=== PATIENT | male | born 1985 | race Two or more races ===

== ENCOUNTER 2022-10-21 05:55 | Emergency (ER) | payer MEDICAID ==
[~2022-10-21] VITALS: Ht 170.2 cm; Wt 109.1 kg
[2022-10-21] MEDS ORDERED: ACETAMINOPHEN 500 MG TAB PO STA (07:19)
[2022-10-21 07:30] VITALS: BP 144/81
[2022-10-21] MEDS ORDERED: TETANUS-DIPTH-ACEL PERTUSSIS 0.5ML SYR Tdap IM ONE (09:00)
[2022-10-21] MEDS ORDERED: IBUP600T28 PO (09:01)
== END 2022-10-21 09:35 | disposition home or self-care (01) ==
LOC: ER 05:55
DX: S83.91XA Sprain of unspecified site of right knee, initial encounter (principal); F17.210 Nicotine dependence, cigarettes, uncomplicated; X58.XXXA Exposure to other specified factors, initial encounter; Y93.89 Activity, other specified; Y92.89 Other specified places as the place of occurrence of the external cause; Y99.8 Other external cause status
CPT/HCPCS: 73562; 93971

== ENCOUNTER 2024-06-11 23:15 | Emergency (ER) | payer MEDICAID ==
[~2024-06-11] VITALS: Ht 170.2 cm; Wt 124.8 kg
[~2024-06-11 23:15] MED LIST: IBUP1TAB5 PO
[2024-06-12] MEDS: KETOROLAC TROMETH 60MG/2ML VIAL IM ONE (00:24)
--- NOTE | 2024-06-12 00:31 | DVH ---
CLINICAL INDICATION: Fall/twist TECHNIQUE: 3 views of the left foot. Comparison: None FINDINGS/IMPRESSION: Small avulsion fracture is seen adjacent to the distal tibia. Moderate soft tissue swelling around the ankle
--- NOTE | 2024-06-12 00:33 | DVH ---
CLINICAL INDICATION: Fall/twist TECHNIQUE: 3 views of the left ankle. Comparison: None FINDINGS/IMPRESSION: There is no evidence of acute fracture or dislocation. The previously described tiny distal tibial av ulsion fracture is not clearly visualized on this exam. Moderate soft tissue swelling around the ankle.
[2024-06-12 00:38] VITALS: BP 152/95; PULSE 110; RESP 18; O2SAT 98
[2024-06-12] MEDS ORDERED: ACET500T58 PO (00:50)
[2024-06-12] MEDS ORDERED: IBUP-1455 PO (00:50)
--- NOTE | 2024-06-12 00:50 | ED.PDOC ---
Musculoskeletal HPI Comments This patient is a pleasant but morbidly obese 38-year-old male who arrives the ED today for evaluation of left ankle and foot pain concerns for the past few days. Patient was working on a ladder when he slipped and fell off the ladder landing on his ankle. Patient is able to ambulate, but states it is painful and his ankle swollen. Patient denies any head trauma. Vital signs were stable at arrival. Chief Complaint: Extremity Swelling Time Seen by MD: 23:18 Reviewed Notes: Nurses Notes Home Meds Active Scripts Ibuprofen Micronized (Ibuprofen) 600 Mg Tab, 600 MG PO Q8HPRN PRN, #30 TAB 0 Refills Prov:GAURANG [employer] 10/21/22 Information Source: Patient Mode of Arrival: Ambulatory Location: Left Extremity Location: Ankle, Foot Timing: Days Prehospital treatment: Pain Meds Severity: Moderate Able to Move Extremity: Yes Bear Weight: Limited Pain: Moderate Mechanism: Blunt Trauma, Compression Circumstances: Fall Onset of Symptoms: After Trauma Symptoms: Swelling, Pain DVT Risk Factors: NONE Past Medical History PAST MEDICAL HISTORY: Denies Surgical History: Denies all surgeries Family History Family History: Reviewed,noncontributory to illness Social History Smoker: Cigarettes Alcohol: Occasionally Drugs: Marijuana Lives In: Home Constitutional: denies: chills, diaphoresis, fatigue, fever, malaise, sweats, weakness, others EENTM: denies: blurred vision, double vision, ear bleeding, ear discharge, ear drainage, ear pain, ear ringing, eye pain, eye redness, hearing loss, mouth pain, mouth swelling, nasal discharge, nose bleeding, nose congestion, nose pain, photophobia, tearing, throat pain, throat swelling, voice changes, others Respiratory: denies: cough, hemoptysis, orthopnea, SOB at rest, shortness of breath, SOB with excertion, stridor, wheezing, others Cardiovascular: denies: chest pain, dizzy spells, diaphoresis, Dyspnea on exertion, edema, irregular heart beat, left arm pain, lightheadedness, palpitations, PND, syncope, others Gastrointestinal: denies: abdomen distended, abdominal pain, blood streaked bowels, constipated, diarrhea, dysphagia, difficulty swallowing, hematemesis, melena, nausea, poor appetite, poor fluid intake, rectal bleeding, rectal pain, vomiting, others Genitourinary: denies: burning, dysuria, flank pain, frequency, hematuria, incontinence, penile discharge, penile sore, pain, testicle pain, testicle swelling, urgency, others Neurological: denies: dizziness, fainting, headache, left sided numbness, left sided weakness, numbness, paresthesia, pre-existing deficit, right sided numbness, right sided weakness, seizure, speech problems, tingling, tremors, we akness, others Musculoskeletal: reports: others (Left ankle pain); denies: back pain, gout, joint pain, joint swelling, muscle pain, muscle stiffness, neck pain Integumetry: denies: bruises, change in color, change in hair/nails, dryness, laceration, lesions, lumps, rash, wounds, others Allergic/Immunocompromised: denies: Difficulty Healing, Frequent Infections, Hives, Itching, others Hematologic/Lymphatic: denies: anemia, blood clots, easy bleeding, easy bruising, swollen glands, others Endocrine: denies: excessive hunger, excessive sweating, excessive thirst, excessive urination, flushing, intolerance to cold, intolerance to heat, unexplained weight gain, unexplained weight loss, others Psychiatric: denies: anxiety, bipolar disorder, depression, hopeless, panic disorder, schizophrenia, sleepless, suicidal, others Physical Exam General Appearance: Moderate Distress (Vqid-an-metndnix distress due to left ankle pain concerns.), Obese HEENT: Normal ENT Inspection, Pharynx Normal, TMs Normal Neck: Full Range of Motion, Non-Tender, Normal, Normal Inspection Respiratory: Chest Non-Tender, Lungs Clear, No Accessory Muscle Use, No Respiratory Distress, Normal Breath Sounds Cardiovascular: No Edema, No JVD, No Murmur, No Gallop, Normal Peripheral Pu lses, Regular Rate/Rhythm Breast Exam: Deferred Gastrointestinal: No Organomegaly, Non Tender, No Pulsatile Mass, Normal Bowel Sounds, Soft Genitalia: Deferred Pelvic: Deferred Rectal: Deferred Extremities: Other (Left ankle is diffusely tender to palpation throughout medial and lateral aspect. Mood moderate edema noted with mild ecchymosis formation on lateral aspect. Moderate reduced range of motion.) Neurologic: Alert, No Motor Deficits, Normal Affect, Normal Mood, No Sensory Deficits Cerebellar Function: Normal Reflexes: Normal Skin: Dry, Normal Color, Warm Lymphatic: No Adenopathy Was a procedure done? Was a procedure done?: No Differential Diagnosis EXT Differential Diagnosis: Fracture, Sprain, Contusion, Strain X-Ray, Labs, Meds, VS Vital Signs Date Time Temp Pulse Resp B/P (MAP) Pulse Ox O2 Delivery O2 Flow Rate FiO2 06/12/24 00:38 110 18 98 Room Air* 0 21 06/12/24 00:38 110 18 152/95 (114) 98 06/11/24 23:27 98.3 110 18 152/95 (114) 98 Current Medications Medications (Trade) Dose Ordered Sig/Enoc Route Start Time Stop Time Status Last Admin Ketorolac Tromethamine (Toradol Injection) 30 mg ONCE ONCE IM 06/11/24 23:30 06/11/24 23:31 DC 06/12/24 00:24 X-Ray, Labs, Meds, VS Comment All studies performed in the ED were evaluated by me personally. Imaging studies were unremarkable for any acute fractures. Patient sustained an ankle sprain. [place]za wrap was provided at discharge. Pain medications as needed. Time of 1ST Reevaluation: 00:48 Reevaluation 1ST: Improved Consultation: PCP Patient Education/Counseling: Diagnosis, Treatment Family Education/Counseling: Diagnosis, Treatment Departure 1 Departure Time of Disposition: 00:49 Impression: Primary Impression: Ankle sprain Disposition: 01 HOME / SELF CARE / HOMELESS Condition: Stable Additional Instructions: Advised patient utilize medication as needed for symptomatic pain relief as well as ice therapy. e-Prescriptions Acetaminophen (Acetaminophen) 500 Mg Tab 500 MG PO Q4HP PRN, #30 TAB Prov: GLENROY EVERETT PAC 06/12/24 Ibuprofen Micronized (Ibuprofen) 800 Mg Tab 800 MG PO Q8HP PRN, #30 TAB Prov: GLENROY EVERETT PAC 06/12/24 Discharged With: Self, Friend Critical Care Note Critical Care Time?: No Stability Stability form required: No Heart Score Heart Score: Heart Score Response (Comments) Value History N/A 0 EKG N/A 0 Age N/A 0 Risk Factors N/A 0 Troponin N/A 0 Total 0 GLENROY EVERETT PAC Jun 12, 2024 00:50
== END 2024-06-12 01:34 | disposition home or self-care (01) ==
LOC: ER 23:15
DX: S93.402A Sprain of unspecified ligament of left ankle, initial encounter (principal); F17.210 Nicotine dependence, cigarettes, uncomplicated; E66.01 Morbid (severe) obesity due to excess calories; F12.10 Cannabis abuse, uncomplicated; Z68.41 Body mass index [BMI] 40.0-44.9, adult; W11.XXXA Fall on and from ladder, initial encounter; Y93.89 Activity, other specified; Y92.89 Other specified places as the place of occurrence of the external cause; Y99.8 Other external cause status
CPT/HCPCS: 73610; 73630; 96372; 99284; J1885